=== PATIENT | male | born 1985 | race Caucasian/White ===

== ENCOUNTER 2023-03-30 06:26 | Day surgery (SDC) | payer OTHER ==
[2023-03-22 15:51] VITALS: BMI 29.7
[2023-03-30] MEDS ORDERED: ceFAZolin SODIUM 1 GM VIAL ONE (06:57)
[2023-03-30] MEDS ORDERED: DEXAMETHASONE SOD PHOSPHATE 4 MG/1 ML VIAL ONE (06:57)
[2023-03-30] MEDS ORDERED: KETOROLAC TROMETHAMINE 30 MG/1 ML VIAL ONE (06:57)
[2023-03-30] MEDS ORDERED: LIDOCAINE HCL/PF 2% SDV 5ML VIAL ONE (06:57)
[2023-03-30] MEDS ORDERED: ONDANSETRON 4 MG/2 ML VIAL ONE (06:57)
[2023-03-30] MEDS ORDERED: PROPOFOL 40 ML ONE (06:58)
[2023-03-30] MEDS ORDERED: SUCCINYLCHOLINE CHLORIDE 200 MG/10 ML SYRINGE ONE (06:59)
[2023-03-30] MEDS ORDERED: MIDAZOLAM HCL 2 MG/2 ML SINGLE DOSE VIAL ONE ×2 (06:59→07:20)
[2023-03-30] MEDS ORDERED: EPINEPHrine 1:1,000 1,000 MCG/ML ML ONE (07:18)
[2023-03-30] MEDS ORDERED: BUPIVACAINE HCL/PF 0.25% (2.5MG/ML) 10 ML VIAL ONE (07:18)
[2023-03-30] MEDS ORDERED: BUPIVACAINE LIPOSOME/PF (EXPAREL) 266 MG/20 ML VIAL ONE (07:20)
[2023-03-30] MEDS ORDERED: BUPIVACAINE HCL/PF 0.5% (5 MG/ML) 30 ML VIAL IJ ONE (07:20)
[2023-03-30] MEDS ORDERED: SODIUM CHLORIDE 0.9% P/F 10 ML VIAL IJ ONE (07:20)
[2023-03-30] MEDS ORDERED: ACETAMINOPHEN INJECTION 100 ML IVPB ONE (07:20)
[2023-03-30] MEDS ORDERED: TRANEXAMIC ACID 1000 MG/10 ML VIAL ONE (08:28)
[2023-03-30] MEDS ORDERED: SEVOFLURANE 250 ML BTL ONE (10:03)
[2023-03-30] MEDS ORDERED: ONDANSETRON 4 MG/2 ML VIAL IVPUSH PRN (11:26)
[2023-03-30] MEDS ORDERED: oxyCODONE HCL 5 MG TABLET PO PRN ×2 (11:26)
[2023-03-30] MEDS ORDERED: LACTATED RINGERS SOLUTION 1,000 ML IV SCH (11:30)
[2023-03-30 12:28] VITALS: TEMP 97.7
[2023-03-30] MEDS ORDERED: PROPOFOL 20 ML ONE (12:30)
[2023-03-30 12:38] VITALS: RESP 16
[2023-03-30 14:02] VITALS: BP 135/75; PULSE 72
== END 2023-03-30 13:20 | disposition home or self-care (01) ==
LOC: FASU 06:26
PROVIDERS: ATTEND Orthopaedic Surgery Sports Medicine
PROC: 0MRN47Z Replacement of Right Knee Bursa and Ligament with Autologous Tissue Substitute, Percutaneous Endoscopic Approach (ICD-10-PCS; principal; 2023-03-30 08:29)
DX: S83.511A Sprain of anterior cruciate ligament of right knee, initial encounter (principal); S83.241A Other tear of medial meniscus, current injury, right knee, initial encounter; M65.861 Other synovitis and tenosynovitis, right lower leg; X58.XXXA Exposure to other specified factors, initial encounter; Y93.9 Activity, unspecified; Y92.9 Unspecified place or not applicable
CPT/HCPCS: 73560-TC-RT-FY; 94760; 97116-GP; C1713